=== PATIENT | female | born 1965 | race Caucasian/White ===

== ENCOUNTER → 2019-07-17 08:42 | Outpatient (CLI) | payer OTHER, SELFPAY ==
[2019-07-17 09:50] LABS: Hemoglobin A1C% w Est Avg Glu 5.2 % (4.0-6.0)
[2019-07-17 09:57] LABS: Alanine Aminotransferase 21 IU/L (<35); Albumin 4.7 g/dL (3.5-5.0); Albumin Globulin Ratio 1.5 (1.0-2.8); Alkaline Phosphatase 62 U/L (38-126); Aspartate Aminotransferase 20 IU/L (14-36); BUN Creatinine Ratio 24.3 (6-22); Bilirubin Total 0.4 mg/dL (0.2-1.3); Blood Urea Nitrogen 17 mg/dL (7-17); Calcium 9.3 mg/dL (8.4-10.2); Carbon Dioxide 31 mmol/L (22-32); Chloride 102 mmol/L (98-107); Cholesterol 220 mg/dL (140-199); Estimated Glomerular Filt Rate > 60.0 mL/min (>60); Globulin 3.2 g/dL (1.7-4.1); Glucose 91 mg/dL (70-100); HDL Cholesterol 62 mg/dL (40-60); HEMOLYSIS < 15 (0-50); LDL Cholesterol Calculated 141 mg/dL (<100); Potassium 4.9 mmol/L (3.4-5.1); Sodium 140 mmol/L (137-145); Total Protein 7.9 g/dL (6.3-8.2); Triglycerides 85 mg/dL (35-150)
[2019-07-17 10:41] LABS: Free T3, Triiodothyronine Free 3.37 pg/mL (2.77-5.27)
[2019-07-17 10:56] LABS: Thyroid Stimulating Hormone 0.35 uIU/mL (0.47-4.68)
[2019-07-19 15:57] LABS: C Peptide 1.27 ng/mL (0.80-3.85)
== END ==
PROVIDERS: Visit Provider Internal Medicine Endocrinology, Diabetes & Metabolism
DX: I10 Essential (primary) hypertension (principal); N95.1 Menopausal and female climacteric states; R73.9 Hyperglycemia, unspecified
CPT/HCPCS: 36415; 80053; 80061; 82670; 83036; 84439; 84443; 84481; 84681